=== PATIENT | male | born 1945 | race Caucasian/White ===

== ENCOUNTER → 2019-11-05 | Outpatient (CLI) | payer MEDICARE, OTHER ==
[~2019-11-05] MED LIST: ASPI81TA59 PO; CRESTOR40 MG PO; DIAZ5TAB4 PO; FLUT1DIS IH; FLUT9.9S NS; LEVO50TA72 PO; PANT40TA5 PO; ROFL500T7 PO; TAMS0.4C97 PO; TEST200V3 IM; TIOT18CA IH; [UNRECOGNIZED DRUG - CODE] PO
== END | disposition home or self-care (01) ==
LOC: LAB 08:28
PROVIDERS: ATTEND Registered Nurse
DX: Z03.818 Encounter for observation for suspected exposure to other biological agents ruled out (principal)
CPT/HCPCS: 87635

== ENCOUNTER → 2019-11-09 | Day surgery (SDC) | payer MEDICARE, OTHER ==
[~2019-11-09] MED LIST changes: +ONDANSETRON PF 4 MG/2 ML VIAL. IV PRN; +PROPOFOL 10,000 MCG/ML (20ML) VIAL IV ONE; +[UNRECOGNIZED DRUG - CODE] PO; -[UNRECOGNIZED DRUG - CODE] PO
[2019-11-09] MEDS: IV RINGERS SOLUTION,LACTATED 1,000 ML IV SCH (10:49)
[2019-11-09 12:22] VITALS: BP 145/77
== END | disposition home or self-care (01) ==
LOC: SURG 08:33
PROVIDERS: ATTEND Emergency Medicine
DX: Z12.11 Encounter for screening for malignant neoplasm of colon (principal); K57.30 Diverticulosis of large intestine without perforation or abscess without bleeding; K21.9 Gastro-esophageal reflux disease without esophagitis; I10 Essential (primary) hypertension; E66.9 Obesity, unspecified; E78.5 Hyperlipidemia, unspecified; I25.2 Old myocardial infarction; G47.33 Obstructive sleep apnea (adult) (pediatric); E03.9 Hypothyroidism, unspecified; J44.9 Chronic obstructive pulmonary disease, unspecified; Z79.899 Other long term (current) drug therapy; Z98.890 Other specified postprocedural states; Z79.82 Long term (current) use of aspirin; Z68.33 Body mass index [BMI] 33.0-33.9, adult
CPT/HCPCS: G0105; J2704; J7120; 45378

== ENCOUNTER → 2020-08-04 | Outpatient (CLI) | payer MEDICARE, OTHER ==
[2019-11-09 12:22] VITALS: BP 145/77
[~2020-08-04] MED LIST changes: -ONDANSETRON PF 4 MG/2 ML VIAL. IV PRN; -PANT40TA5 PO; +PANT40TA6 PO; -PROPOFOL 10,000 MCG/ML (20ML) VIAL IV ONE
--- NOTE | 2020-08-04 13:34 | RAD ---
EXAM: Maxillofacial bone CT without contrast. HISTORY: Frontal sinusitis. TECHNIQUE: Computed tomographic images of the maxillofacial bones were obtained without contrast. *One or more of the following individualized dose reduction techniques were utilized for this examina tion: 1. Automated exposure control. 2. Adjustment of the mA and/or kV according to patient size. 3. Use of iterative reconstruction technique. COMPARISON: None. FINDINGS: There is a small mucous retention cyst within the inferior left maxillary sinus. There is n o sinus opacification or air-fluid level. The ostiomeatal units are patent. There is no significant n rhiannon septal deviation. The temporomandibular joints are intact. The visualized portions of the brain and calvarium are unremarkable. The orbits are unremarkable. There is a small benign calcification at the floor the mouth. There is a bony defect with metallic screw within the anterior mandible. There are multiple missing teeth and dental restorations. There is periapical lucency surrounding the roots of the second left mandibular molar. This can be seen with dental disease. IMPRESSION: 1. Small left maxillary sinus mucous retention cyst. 2. No evidence of acute sinusitis. Electronically signed by: Vi Zarco MD (08/04/2020 1:31 PM) [id number]
== END ==
LOC: CT 11:13
PROVIDERS: ATTEND Family Medicine
DX: J34.1 Cyst and mucocele of nose and nasal sinus (principal); J32.1 Chronic frontal sinusitis
CPT/HCPCS: 70486

== ENCOUNTER → 2020-12-08 | Outpatient (CLI) | payer MEDICARE, OTHER ==
[2019-11-09 12:22] VITALS: BP 145/77
[~2020-12-08] MED LIST changes: +NITR6.5C14 PO; -[UNRECOGNIZED DRUG - CODE] PO
--- NOTE | 2020-12-08 09:57 | RAD ---
PQRS Compliance Statement: One or more of the following individualized dose reduction techniques were utilized for this examinat ion: 1. Automated exposure control 2. Adjustment of the mA and/or kV according to patient size 3. Use of iterative reconstruction technique CT LOW DOSE LUNG SCREEN 12/08/2020 8:46 AM Indication: Smoker for 50 years, one to 2 packs per day. COPD. COMPARISON: None available. TECHNIQUE: Multiple axial CT images of the chest were obtained without intravenous contrast utilizing low-dose technique. Coronal and sagittal reformats are provided. FINDINGS: There is a 9 mm calcified granuloma in the posterior left lower lobe. There is a 4 mm solid noncalcif ied pulmonary nodule in the medial right lower lobe (series 6, image 312). No pleural effusions, pulm onary vascular congestion or pneumothorax. Lungs are otherwise clear. Low-dose technique limits evalu ation of the thyroid gland. No pathologically enlarged thoracic lymph nodes within the limitations of noncontrast examination and low-dose technique. Heart size within normal limits. Trace pericardial f luid. Three-vessel coronary artery vascular calcifications. Thoracic aorta is normal in course and ca liber with mild calcified atheromatous plaque. Calcified mediastinal and left hilar lymph nodes sugge st sequela prior granulomatous exposure. Cholecystectomy changes are present. Calcifications within t he spleen suggest prior granulomatous exposure. IMPRESSION: 4 mm solid noncalcified pulmonary nodule identified in the medial right lower lobe. Lung RADS categor y 2, benign appearance and behavior. Recommend low-dose chest CT in one year. Sequela prior granulomatous exposure with left lower lobe 9 mm calcified granuloma, calcified mediast inal and left hilar lymph nodes and splenic calcifications. Electronically signed by: Yaima Bone MD (12/08/2020 9:54 AM) [id number]
--- NOTE | 2020-12-08 10:04 | RAD ---
US DPLX ARTR EXTREM LOWER BILAT Indication: Reason: PVD, HX OF SMOKING X 55 YEARS / Spl. Instructions: / History: Comparison: None. Procedure: Real-time grayscale, color flow Doppler, and Doppler spectral waveform analysis of the art erial system of the lower extremity is performed. Findings: Right lower extremity: Triphasic or biphasic waveforms within the right common femoral, deep femoral, superficial femoral, popliteal, peroneal and anterior tibial arteries. Ectatic dilatation of the mid superficial femoral artery measures 1.2 cm. Monophasic waveform within the right posterior tibial an d dorsalis pedis arteries. Moderate atheromatous plaque. Mildly elevated velocity within the right co mmon femoral artery measures 164 cm/s. Left lower extremity: Occlusion of the left superficial femoral artery proximally extending to the di stal aspect. Reconstitution of the popliteal artery. Monophasic waveform throughout the remainder of the left lower extremity. Moderate atheromatous plaque. No significant velocity elevation. IMPRESSION: 1. Occlusion of the LEFT superficial femoral artery with reconstitution of the popliteal artery. CT angiogram can further assess as clinically indicated. 2. Monophasic waveform within RIGHT posterior tibial and dorsalis pedis arteries, may indicate proxi mal stenosis. 3. Mildly elevated velocity within the RIGHT common femoral artery, may indicate 30-49 percent steno sis. FOR INTERNAL CODING PURPOSES Critical result: Findings discussed with Dr. Layton at 12/08/2020 9:59 AM. RESULT CODE: (C) Electronically signed by: Ede Musa DO (12/08/2020 10:01 AM) [id number]
== END ==
LOC: US 08:43
PROVIDERS: ATTEND Family Medicine
DX: Z12.2 Encounter for screening for malignant neoplasm of respiratory organs (principal); I73.9 Peripheral vascular disease, unspecified; R91.1 Solitary pulmonary nodule; I70.8 Atherosclerosis of other arteries; Z87.891 Personal history of nicotine dependence
CPT/HCPCS: 71271; 93925